=== PATIENT | male | born 1970 | race Caucasian/White ===

== ENCOUNTER 2023-11-01 09:47 | Day surgery (SDC) | payer BC, OTHER ==
[2023-10-28 16:28] LABS: Absolute Basophils 0.1 K/uL (0-0.5); Absolute Eosinophils 0.1 K/uL (0-0.5); Absolute Lymphocytes (CBC) 2.3 K/uL (0.7-4.9); Absolute Monocytes 0.6 K/uL (0.1-1.3); Absolute Neutrophil 4.3 K/uL (1.8-8.0); Basophils % 0.8 % (0-1.3); Eosinophils % 1.6 % (0-4.4); Hematocrit 49.9 % (39.6-49.0); Lymphocytes % 30.8 % (15.3-44.8); MCH 28.6 pg (27.0-35.0); MCV 89.5 fL (80-100); Monocytes % 8.7 % (3.3-12.3); Neutrophils % 58.1 % (41.7-73.7); Nucleated Red Blood Cells % 0.1 % (0-0); Platelets 208 thou/uL (152-406); RBC Red Blood Cell Count 5.58 M/uL (4.33-5.43); Red Cell Distribution Width 16.7 % (12.1-15.2)
[2023-10-28 16:39] LABS: Anion Gap 8.8 mEq/L (5.0-15.0); Potassium 3.8 mEq/L (3.5-5.1)
--- NOTE | 2023-10-29 14:06 | EKG ---
Test Date: 2023-10-28 Test Time: 16:00:31 Electoral Officer: MYKE MEASUREMENT RESULTS: Intervals: Rate: 52 AK: 138 QRSD: 106 QT: 402 QTc: 373 [place]: P: 54 AK: 138 QRS: 64 T: 60 INTERPRETIVE STATEMENTS: Sinus bradycardia Otherwise normal ECG No previous ECG available for comparison Electronically Signed On 10-29-23 14:06:02 CDT by Guille Britton
[2023-11-01] MEDS ORDERED: Ringers Lactate 1,000 ML IV ONE (10:00)
[2023-11-01] MEDS ORDERED: propofoL 200 MG/20 ML VIAL IV ONE (11:40)
[2023-11-01] MEDS ORDERED: LIDOCAINE 1% MPF 30 ML VIAL ONE (11:40)
[2023-11-01] MEDS ORDERED: GLYCOPYRROLATE 0.2 MG/ML SYR ONE (11:40)
[2023-11-01 12:56] VITALS: TEMP 97; O2SAT 100
[2023-11-01 13:43] VITALS: BP 135/75
== END 2023-11-01 13:41 | disposition home or self-care (01) ==
LOC: OR 09:47
PROVIDERS: ATTEND Surgery
PROC: 0DBF8ZX Excision of Right Large Intestine, Via Natural or Artificial Opening Endoscopic, Diagnostic (ICD-10-PCS; principal; 2023-11-01 12:00)
DX: Z12.11 Encounter for screening for malignant neoplasm of colon (principal); D12.2 Benign neoplasm of ascending colon; K64.8 Other hemorrhoids
CPT/HCPCS: 45385; 93005; 85025; 80048; 36415; 88305; J2704; J2001; J7120

== ENCOUNTER 2023-12-24 09:16 | Day surgery (SDC) | payer BC ==
[2023-12-22 10:48] LABS: Absolute Eosinophils 0.1 K/uL (0-0.5); Absolute Lymphocytes (CBC) 1.4 K/uL (0.7-4.9); Absolute Monocytes 0.8 K/uL (0.1-1.3); Absolute Neutrophil 5.5 K/uL (1.8-8.0); Basophils % 0.5 % (0-1.3); Eosinophils % 0.8 % (0-4.4); Hematocrit 47.5 % (39.6-49.0); Hemoglobin 15.2 g/dL (13.6-17.9); Lymphocytes % 18.3 % (15.3-44.8); MCHC 31.9 g/dL (32.0-36.0); MCV 90.9 fL (80-100); MPV 10.5 fL (7.6-11.3); Monocytes % 10.5 % (3.3-12.3); Neutrophils % 69.9 % (41.7-73.7); Platelets 205 thou/uL (152-406); RBC Red Blood Cell Count 5.23 M/uL (4.33-5.43); Red Cell Distribution Width 15.5 % (12.1-15.2)
[2023-12-24] MEDS ORDERED: Ringers Lactate 1,000 ML IV ONE (09:31)
[2023-12-24] MEDS: LIDOCAINE HCL/EPINEPHRINE 20 ML MDV ONE (11:27)
[2023-12-24] MEDS ORDERED: MIDAZOLAM HCL 2 MG/2 ML INJ ONE (11:46)
[2023-12-24] MEDS ORDERED: FENTANYL CITR 100 MCG/2 ML ONE (11:46)
[2023-12-24] MEDS: CEFAZOLIN SODIUM 2 GM/VIAL ONE (11:51)
[2023-12-24] MEDS ORDERED: LIDOCAINE 2% MPF 5 ML VIAL ONE (11:56)
[2023-12-24] MEDS ORDERED: ROCURONIUM 50 MG/5 ML VIAL IV ONE (11:56)
[2023-12-24] MEDS ORDERED: propofoL 200 MG/20 ML VIAL IV ONE (11:56)
[2023-12-24] MEDS ORDERED: KETOROLAC 30 MG/ML INJ ONE (12:26)
[2023-12-24] MEDS ORDERED: dexAMETHasone 10 MG/ML VIAL ONE (12:26)
[2023-12-24] MEDS ORDERED: ONDANSETRON 4 MG/2 ML VIAL ONE (12:26)
[2023-12-24] MEDS ORDERED: GLYCOPYRROLATE 0.2 MG/ML SYR ONE (12:55)
[2023-12-24] MEDS ORDERED: NEOSTIGMINE 1 MG/ML -10 ML VIAL ONE (12:55)
--- NOTE | 2023-12-24 13:00 | P.OP ---
Preoperative diagnosis: Umbilical Hernia Postoperative diagnosis: Umbilical Hernia Primary procedure: Laparoscopic Umbilical Hernia Repair with mesh Anesthesia: GETA + Local Estimated blood loss: <5cc Specimen: None Findings: Incarcerated Adipose in umbilicus ~ 2cm Complications: None Implants: Bard Ventralite ST 11.4cm Round, Absorbatack x 60 Transferred to: Recovery Room Condition: Good
[2023-12-24] MEDS: HYDROMORPHONE HCL 1 MG/ML INJ ONE ×2 (13:12→13:25)
[2023-12-24] MEDS: HYDROCODONE/APAP 7.5/325 MG TAB ONE (14:23)
[2023-12-24 14:50] VITALS: BP 133/89; TEMP 97.3; O2SAT 98
--- NOTE | 2023-12-25 00:18 | OP ---
Date of Procedure: 12/24/2023 Surgeon: Channing Lovelace MD, Preoperative Diagnosis: Umbilical hernia. Postoperative Diagnosis: Umbilical hernia. Procedure Performed: Laparoscopic umbilical hernia repair with mesh. Anesthesia: General endotracheal plus local. Estimated Blood Loss: Less than 5 cc. Specimen: None. Findings: Incarcerated adipose tissue in the umbilicus approximately 2 cm in size. Complications: None. Implants: Bard Ventralight ST mesh with Echo Positioning System, 11.4 cm Bard Ventralight mesh utili zed. Covidien AbsorbaTack x60 tacks utilized. Disposition: The patient was transferred to recovery room in good condition. Procedure In Detail: After informed consent was obtained, the patient was brought to the operating r oom, prepped and draped in the usual sterile fashion. After adequate anesthesia was achieved, I anes thetized an area at the left upper quadrant down to subcutaneous tissue. A 5 mm 0-degree optical tro car was introduced in the abdomen without incident or complication. Insufflation was obtained to 15 mmHg at this time. There was no injury to vital structures upon entering the abdomen. Additional tr ocar was placed in the left mid abdomen. This was a 12 mm trocar placed under direct vision without incident or complication. The area was inspected. I used the LigaSure device to take down preperito vijay fat from the umbilical hernia, which was incarcerated at this point. I swept back all preperiton eal fat with the same said LigaSure device with good hemostasis. I ultimately brought in a V-Loc sut ure and imbricated the hernia sac and the umbilicus, closing the defect in a running fashion with goo d approximation of tissues. After this was completed, and the hernia was imbricated, I deployed the 11.[address] mesh with Echo Positioning System in the central portion through a separa te stab incision at the superior aspect of the umbilicus. I then deployed the balloon deployment sys tem and secured the mesh using a double crown type orientation. The AbsorbaTack absorbable fixation tacks approximately 60 tacks were utilized in total. The balloon deployment system was found to be i ntact on the back table as well as the portions of the Endo Stitch. At this point, I closed the 12 m m trocar site using Jb-David suture passer with 0 Vicryl in interrupted fashion with good appr oximation of tissues. The abdomen was desufflated under direct visualization without incident or com plication. The abdomen was desufflated under direct visualization without incident or complication. All skin incisions were then copiously irrigated and closed with a 4-0 Monocryl in a running fashion . Dermabond was placed over top. The patient tolerated procedure without incident or complication, and transferred to PACU in good condition. All counts were correct at the end of the case. NA/VU Voice ID: [id number] Report ID: [id number]
== END 2023-12-24 14:45 | disposition home or self-care (01) ==
LOC: OR 09:16
PROVIDERS: ATTEND Surgery
PROC: 0WUF4JZ Supplement Abdominal Wall with Synthetic Substitute, Percutaneous Endoscopic Approach (ICD-10-PCS; principal; 2023-12-24 10:45)
DX: K42.9 Umbilical hernia without obstruction or gangrene (principal); I10 Essential (primary) hypertension
CPT/HCPCS: 85025; 80048; 36415; 49591; J2704; J2710; J2003; J2250; J3010; J1100; J1171 ×2; J2405; J7120; C1781